=== PATIENT | male | born 1935 | race Caucasian/White ===

== ENCOUNTER 2016-04-15 11:56 | Inpatient (IN) | payer MEDICARE, OTHER ==
[2016-04-15] VITALS (8 sets, daily range): BP systolic 104–194; BP diastolic 54–106; PULSE 86–99; RESP 16–18; TEMP 95.7; O2SAT 94–98
[~2016-04-15] VITALS: Ht 175.3 cm; Wt 64.0 kg
[~2016-04-15 11:56] MED LIST: HYDR-3533 PO
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
[2016-04-15] MEDS ORDERED: SODIUM CHLORIDE 0.9% FLUSH 5 ML FLUSH IVF PRN ×2 (12:30→16:00)
[2016-04-15] MEDS ORDERED: ceFAZolin INJ 1,000 MG in ceFAZolin 2 GM PREMIX 50 ML IV ONE (12:30)
[2016-04-15] MEDS ORDERED: ONDANSETRON HCL 4 MG/2 ML VIAL IVP ONE (12:30)
[2016-04-15] MEDS ORDERED: DIPHTH/TETANUS/ACEL PERTUSSIS (BOOSTER) 0.5 ML VIAL/PFS IM ONE (12:30)
[2016-04-15 13:19] LABS: AUTOMATED NEUTROPHIL # 13.1 TH/MM3 (1.8-7.7); BASOPHIL # 0.1 TH/MM3 (0-0.2); BASOPHIL % 0.1 % (0.0-2.0); HEMATOCRIT 40.6 % (39.0-51.0); LYMPH % 70.8 % (9.0-44.0); MEAN CELL VOLUME 95.5 FL (80.0-100.0); MEAN CORPUSCULAR HEMOGLOBIN 31.5 PG (27.0-34.0); MONO % 2.7 % (0.0-8.0); NEUT % 26.4 % (16.0-70.0); PLATELET COUNT 180 TH/MM3 (150-450); RED BLOOD COUNT 4.25 MIL/MM3 (4.50-5.90); RED CELL DISTRIBUTION WIDTH 14.3 % (11.6-17.2); WHITE BLOOD COUNT 49.5 TH/MM3 (4.0-11.0)
[2016-04-15 13:22] LABS: HEMO FLAGS AUTO DIFF
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
[2016-04-15 13:30] LABS: APTT (PATIENT) 24.9 SEC (24.3-30.1); INTERNATIONAL NORMALIZED RATIO 1.1 RATIO; PROTHROMBIN TIME - PATIENT 11.9 SEC (9.8-11.6)
[2016-04-15] MEDS ORDERED: MORPHINE SULFATE 4 MG/ML INJ IV PUSH ONE (13:30)
[2016-04-15 13:39] LABS: ANION GAP 7 MEQ/L (5-15); BICARBONATE 29.3 MEQ/L (21.0-32.0); BLOOD UREA NITROGEN 11 MG/DL (7-18); CHLORIDE 96 MEQ/L (98-107); GLOMERULAR FILTRATION RATE 123 ML/MIN (>89); POTASSIUM 4.7 MEQ/L (3.5-5.1); SODIUM (NA) 132 MEQ/L (136-145)
[2016-04-15] MEDS ORDERED: hydrALAZINE HCL 20 MG/ML VIAL IV PUSH ONE (13:45)
[2016-04-15 14:02] LABS: BANDS 4 % (0-6); NEUTROPHIL # MANUAL DIFF 12.4 TH/MM3 (1.8-7.7); POLYS (SEG NEUTROPHILS) 21 % (16-70); WBC DIFF SAMPLE 100
[2016-04-15 14:03] LABS: PLATELET ESTIMATE SMEAR NORMAL (NORMAL); PLATELET MORPHOLOGY NORMAL (NORMAL); SCAN/DIFF FINAL DIFF MANUAL; SMUDGE CELLS PRESENT PRESENT
[2016-04-15] MEDS ORDERED: IOHEXOL 350 MG/ML 10 ML VIAL (for RAD DIAG) IV ONE (14:23)
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
[2016-04-15] MEDS ORDERED: SODIUM CHLOR 0.9% 1000 ML INJ 1,000 ML IV ONE (15:15)
[2016-04-15] MEDS ORDERED: THIAMINE INJ 100 MG in SODIUM CHLORIDE 0.9% INJ 100 ML IV ONE (15:15)
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
[2016-04-15] MEDS ORDERED: NALOXONE HCL 0.4 MG/ML AMP IV PRN (16:00)
[2016-04-15] MEDS ORDERED: ONDANSETRON HCL 4 MG/2 ML VIAL IV PRN (16:00)
[2016-04-15] MEDS ORDERED: Post-op Orders (for Pharmacy) MISC XX ONE (16:00)
[2016-04-15] MEDS ORDERED: PERMETHRIN 1% LOTION 60 ML BTL TOPICAL ONE (16:00)
[2016-04-15] MEDS: PANTOPRAZOLE SOD 40 MG DELAYED RELEASE TAB PO SCH (16:35)
[2016-04-15] MEDS: SODIUM CHLOR 0.9% 1000 ML INJ 1,000 ML IV SCH (16:36)
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
--- NOTE | 2016-04-15 19:46 | EKG ---
Date Performed: 04/15/2016 Time Performed: 12:56:26 PTAGE: 81 years EKG: Sinus rhythm UNDULATING BASELINE MAY AFFECT RESULTS LEFT ANTERIOR FASCICULAR BLOCK ABNORMAL ECG PREVIOUS TRACING : 12/23/2011 12.35 Since previous tracing, no significant change noted DOCTOR: Nimesh Perry Interpretating Date/Time 04/15/2016 19:44:48
[2016-04-15 20:41] LABS: BLOOD, URINE NEG (NEG); GLUCOSE,URINE 70 mg/dL (NEG); KETONE, URINE 10 mg/dL (NEG); MUCUS URINE FEW /lpf (OCC); NITRITE,URINE NEG (NEG); PH, URINE 7.5 (5.0-8.5); URINE COLOR YELLOW (YELLW/STRAW)
[2016-04-15 20:43] LABS: COMMENT (UR) CATH-CULT NOT IND; CULTURE IF INDICATED CATH CULTURE NOT IND
[2016-04-15] MEDS: DOCUSATE SODIUM 100 MG CAP PO SCH (23:00)
[2016-04-15] MEDS: oxyCODONE/ACETAMINOPHEN 5 MG/325 MG TAB PO PRN (23:00)
[2016-04-16] VITALS (13 sets, daily range): BP systolic 107–162; BP diastolic 55–78; PULSE 59–86; RESP 16–21; TEMP 98–98.6; O2SAT 94–97
[2016-04-16] MEDS: SODIUM CHLOR 0.9% 1000 ML INJ 1,000 ML IV SCH (04:30)
--- NOTE | 2016-04-16 06:52 | RADRPT ---
EXAM DATE/TIME: 04/16/2016 05:59 [place] COMPARISON: CT BRAIN W/O CONTRAST, April 15, 2016, 14:10. INDICATIONS : Follow up temporal bone fracture. RADIATION DOSE: 56.35 CTDIvol (mGy) MEDICAL HISTORY : None SURGICAL HISTORY : None. ENCOUNTER: Subsequent ACUITY: 1 day PAIN SCALE: 0/10 LOCATION: Left temporal TECHNIQUE: Multiple contiguous axial images were obtained of the head. Using automated exposure control and adj ustment of the mA and/or kV according to patient size, radiation dose was kept as low as reasonably a chievable to obtain optimal diagnostic quality images. FINDINGS: Stable size of the left temporal scalp hematoma and to the fractures of the side traumatic arch, late ral orbit, anterior maxilla, left nasal bone and comminuted fractures of the mid convexity left tempo ral region. No evidence of epidural hematoma. No evidence of blood products in the left hemisphere. There is focal hyperdensity in the inferior lateral aspect of the right temporal lobe and floor of the middle cranial fossa measuring 1.3 cm.. There is good lockwood-white matter differentiation. The ve ntricles are symmetric in size. CONCLUSION: 1. Contusion inferior right temporal lobe in the middle cranial fossa. 2. No extra-axial or intra-axial hemorrhages and left on the left side. 3. Stable left-sided facial and parietal bone fractures. Rd Hall MD on April 16, 2016 at 6:47 Board Certified Radiologist. This report was verified electronically.
[2016-04-16] MEDS: BACITRACIN TOP OINT 15 GM TUBE TOP SCH ×3 (09:00→22:11)
[2016-04-16] MEDS: oxyCODONE/ACETAMINOPHEN 5 MG/325 MG TAB PO PRN ×3 (09:26→22:12)
[2016-04-16] MEDS: SODIUM CHLORIDE 0.9% FLUSH 5 ML FLUSH IVF SCH ×2 (09:26→22:11)
[2016-04-16] MEDS: MAGNESIUM HYDROXIDE SUSP 30 ML CUP PO SCH (09:27)
[2016-04-16] MEDS: DOCUSATE SODIUM 100 MG CAP PO SCH ×2 (09:27→22:11)
[2016-04-16] MEDS: MULTIVITAMIN INJ 10 ML, THIAMINE INJ 100 MG, FOLIC ACID INJ 1 MG in SODIUM CHLORID 0.9%... IV SCH (10:37)
[2016-04-16] MEDS: PANTOPRAZOLE SOD 40 MG DELAYED RELEASE TAB PO SCH (15:53)
[2016-04-17] VITALS (7 sets, daily range): BP systolic 122–191; BP diastolic 60–86; PULSE 67–83; RESP 16–20; TEMP 98–98.4; O2SAT 95–99
[2016-04-17] MEDS: oxyCODONE/ACETAMINOPHEN 5 MG/325 MG TAB PO PRN ×3 (07:51→22:25)
[2016-04-17] MEDS: SODIUM CHLORIDE 0.9% FLUSH 5 ML FLUSH IVF SCH ×2 (09:00→22:21)
[2016-04-17] MEDS: MULTIVITAMIN INJ 10 ML, THIAMINE INJ 100 MG, FOLIC ACID INJ 1 MG in SODIUM CHLORID 0.9%... IV SCH (10:24)
[2016-04-17] MEDS: MAGNESIUM HYDROXIDE SUSP 30 ML CUP PO SCH (10:26)
[2016-04-17] MEDS: DOCUSATE SODIUM 100 MG CAP PO SCH ×2 (10:26→22:21)
[2016-04-17] MEDS: BACITRACIN TOP OINT 15 GM TUBE TOP SCH ×2 (10:26→22:22)
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
[2016-04-17] MEDS: PANTOPRAZOLE SOD 40 MG DELAYED RELEASE TAB PO SCH (18:47)
[2016-04-18] VITALS (7 sets, daily range): BP systolic 134–186; BP diastolic 73–88; PULSE 59–75; RESP 16–20; TEMP 97.9–98.5; O2SAT 93–96
[2016-04-18] MEDS: oxyCODONE/ACETAMINOPHEN 5 MG/325 MG TAB PO PRN ×3 (04:22→15:59)
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
[2016-04-18] MEDS ORDERED: LACTULOSE SYRUP 20 GM/30 ML CUP PO ONE (07:30)
[2016-04-18] MEDS: MAGNESIUM HYDROXIDE SUSP 30 ML CUP PO SCH (08:34)
[2016-04-18] MEDS: SODIUM CHLORIDE 0.9% FLUSH 5 ML FLUSH IVF SCH ×2 (08:34→23:04)
[2016-04-18] MEDS: BACITRACIN TOP OINT 15 GM TUBE TOP SCH ×2 (08:34→23:04)
[2016-04-18] MEDS: DOCUSATE SODIUM 100 MG CAP PO SCH ×2 (08:34→23:02)
[2016-04-18] MEDS: MULTIVITAMIN INJ 10 ML, THIAMINE INJ 100 MG, FOLIC ACID INJ 1 MG in SODIUM CHLORID 0.9%... IV SCH (09:07)
[2016-04-18] MEDS: PANTOPRAZOLE SOD 40 MG DELAYED RELEASE TAB PO SCH (16:39)
[2016-04-18] MEDS: REMOVE OLD PATCH T-DERMAL SCH (18:15)
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
[2016-04-18] MEDS: NITROGLYCERIN 0.4 MG/HR PATCH TD SCH (19:33)
[2016-04-18] MEDS: LISINOPRIL 10 MG TAB PO SCH (23:02)
[2016-04-19] VITALS (7 sets, daily range): BP systolic 90–155; BP diastolic 50–74; PULSE 64–86; RESP 16–20; TEMP 97.9–98.6; O2SAT 93–96
[2016-04-19] MEDS ORDERED: MAGNESIUM CITRATE SOLN 300 ML BTL PO ONE (08:30)
[2016-04-19] MEDS: REMOVE OLD PATCH T-DERMAL SCH (09:00)
[2016-04-19] MEDS: SODIUM CHLORIDE 0.9% FLUSH 5 ML FLUSH IVF SCH ×2 (09:56→22:50)
[2016-04-19] MEDS: LISINOPRIL 10 MG TAB PO SCH ×2 (09:57→21:00)
[2016-04-19] MEDS: MAGNESIUM HYDROXIDE SUSP 30 ML CUP PO SCH (09:57)
[2016-04-19] MEDS: DOCUSATE SODIUM 100 MG CAP PO SCH ×2 (09:57→22:50)
[2016-04-19] MEDS: BACITRACIN TOP OINT 15 GM TUBE TOP SCH ×2 (09:57→22:51)
[2016-04-19] MEDS: MULTIVITAMIN INJ 10 ML, THIAMINE INJ 100 MG, FOLIC ACID INJ 1 MG in SODIUM CHLORID 0.9%... IV SCH (09:57)
[2016-04-19] MEDS: oxyCODONE/ACETAMINOPHEN 5 MG/325 MG TAB PO PRN ×3 (09:59→22:52)
[2016-04-19] MEDS: NITROGLYCERIN 0.4 MG/HR PATCH TD SCH (14:34)
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
[2016-04-19] MEDS: PANTOPRAZOLE SOD 40 MG DELAYED RELEASE TAB PO SCH (17:42)
[2016-04-20] VITALS (8 sets, daily range): BP systolic 132–198; BP diastolic 64–88; PULSE 56–77; RESP 16–20; TEMP 97.7–98.1; O2SAT 95–98
[2016-04-20] MEDS: SODIUM CHLORIDE 0.9% FLUSH 5 ML FLUSH IVF SCH ×2 (08:04→19:37)
[2016-04-20] MEDS: MULTIVITAMIN INJ 10 ML, THIAMINE INJ 100 MG, FOLIC ACID INJ 1 MG in SODIUM CHLORID 0.9%... IV SCH (08:04)
[2016-04-20] MEDS: oxyCODONE/ACETAMINOPHEN 5 MG/325 MG TAB PO PRN ×2 (08:05→19:36)
[2016-04-20] MEDS: NITROGLYCERIN 0.4 MG/HR PATCH TD SCH (08:05)
[2016-04-20] MEDS: LISINOPRIL 10 MG TAB PO SCH ×2 (08:06→19:36)
[2016-04-20] MEDS: BACITRACIN TOP OINT 15 GM TUBE TOP SCH ×2 (08:06→19:37)
[2016-04-20] MEDS: MAGNESIUM HYDROXIDE SUSP 30 ML CUP PO SCH (08:06)
[2016-04-20] MEDS: DOCUSATE SODIUM 100 MG CAP PO SCH ×2 (08:06→19:36)
[2016-04-20] MEDS: REMOVE OLD PATCH T-DERMAL SCH (08:06)
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
[2016-04-20 09:53] LABS: AUTOMATED NEUTROPHIL # 2.6 TH/MM3 (1.8-7.7); BASOPHIL # 0.1 TH/MM3 (0-0.2); BASOPHIL % 0.3 % (0.0-2.0); EOSINOPHIL # 0.4 TH/MM3 (0-0.4); EOSINOPHIL % 1.1 % (0.0-4.0); HEMATOCRIT 34.5 % (39.0-51.0); LYMPH % 88.5 % (9.0-44.0); LYMPHOCYTE # 34.2 TH/MM3 (1.0-4.8); MEAN CELL VOLUME 97.1 FL (80.0-100.0); MEAN CORPUSCULAR HEMOGLOBIN 31.7 PG (27.0-34.0); MEAN CORPUSCULAR HGB CONC 32.6 % (32.0-36.0); MONO % 3.5 % (0.0-8.0); NEUT % 6.6 % (16.0-70.0); PLATELET COUNT 136 TH/MM3 (150-450); RED BLOOD COUNT 3.56 MIL/MM3 (4.50-5.90); WHITE BLOOD COUNT 38.7 TH/MM3 (4.0-11.0)
[2016-04-20 09:56] LABS: HEMO FLAGS AUTO DIFF
[2016-04-20 10:19] LABS: ANION GAP 6 MEQ/L (5-15); BICARBONATE 30.1 MEQ/L (21.0-32.0); BLOOD UREA NITROGEN 9 MG/DL (7-18); CHLORIDE 104 MEQ/L (98-107); GLOMERULAR FILTRATION RATE 164 ML/MIN (>89); POTASSIUM 4.4 MEQ/L (3.5-5.1); SODIUM (NA) 140 MEQ/L (136-145)
--- NOTE | 2016-04-20 11:00 | RADRPT ---
EXAM DATE/TIME: 04/20/2016 10:19 [place] COMPARISON: CT BRAIN W/O CONTRAST, April 16, 2016, 5:59. INDICATIONS : Dysphagia. FLUORO TIME: 0.5 minutes IMAGE COUNT: 5 CONTRAST: 1. Liquid E-Z Paque Barium Sulfate (60% w/v, 41% w.w) MEDICAL HISTORY : None. SURGICAL HISTORY : Splenectomy. lumbar spine surgery ENCOUNTER: Initial ACUITY: 4 - 6 days PAIN SCORE: 0/10 LOCATION: Bilateral neck FINDINGS: Limited barium swallow is performed for evaluation of swallowing mechanism after trauma. Ingestion of thin barium demonstrated a normal swallowing mechanism without evidence of aspiration. Imaging of th e esophagus is unremarkable. CONCLUSION: Normal swallowing mechanism without evidence of aspiration. Susy Albarran MD on April 20, 2016 at 10:55 Board Certified Radiologist. This report was verified electronically.
[2016-04-20 11:16] LABS: NEUTROPHIL # MANUAL DIFF 1.9 TH/MM3 (1.8-7.7); POLYS (SEG NEUTROPHILS) 5 % (16-70); WBC DIFF SAMPLE 100
[2016-04-20 11:18] LABS: ACANTHOCYTES OCC (NORMAL); PLATELET ESTIMATE SMEAR NORMAL (NORMAL); PLATELET MORPHOLOGY ENLARGED (NORMAL)
[2016-04-20 11:20] LABS: SMUDGE CELLS PRESENT PRESENT
[2016-04-20 11:21] LABS: SCAN/DIFF FINAL DIFF MANUAL
[2016-04-20 11:24] LABS: ALKALINE PHOSPHATASE 38 U/L (45-117); ALT (GPT) 32 U/L (12-78); AST (GOT) 33 U/L (15-37); TOTAL BILIRUBIN ADULT 0.4 MG/DL (0.2-1.0)
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
[2016-04-20] MEDS: PANTOPRAZOLE SOD 40 MG DELAYED RELEASE TAB PO SCH (17:03)
[2016-04-20 22:59] LABS: MRSA PCR POSITIVE (NEGATIVE); STAPH AUREUS PCR POSITIVE (NEGATIVE)
[2016-04-21 00:10] VITALS: BP 164/84; PULSE 68; RESP 18; TEMP 98; O2SAT 97
[2016-04-21] MEDS: oxyCODONE/ACETAMINOPHEN 5 MG/325 MG TAB PO PRN ×3 (00:15→10:30)
[2016-04-21 04:19] VITALS: BP 160/79; PULSE 73; RESP 18; TEMP 98.2; O2SAT 94
[2016-04-21] MEDS: MULTIVITAMIN INJ 10 ML, THIAMINE INJ 100 MG, FOLIC ACID INJ 1 MG in SODIUM CHLORID 0.9%... IV SCH (07:22)
[2016-04-21 08:00] VITALS: BP 108/61; PULSE 63; RESP 18; TEMP 98.3; O2SAT 97
[2016-04-21] MEDS: MAGNESIUM HYDROXIDE SUSP 30 ML CUP PO SCH (09:00)
[2016-04-21] MEDS: SODIUM CHLORIDE 0.9% FLUSH 5 ML FLUSH IVF SCH (09:00)
[2016-04-21] MEDS: REMOVE OLD PATCH T-DERMAL SCH (09:00)
[2016-04-21] MEDS: BACITRACIN TOP OINT 15 GM TUBE TOP SCH (09:00)
[2016-04-21] MEDS: NITROGLYCERIN 0.4 MG/HR PATCH TD SCH (09:00)
[2016-04-21] MEDS: DOCUSATE SODIUM 100 MG CAP PO SCH (09:00)
[2016-04-21] MEDS: LISINOPRIL 10 MG TAB PO SCH (09:00)
[2016-04-21] MEDS ORDERED: PNEUMOCOCCAL POLYVALENT INJ 25 MCG/0.5 ML SYR IM ONE (10:00)
[2016-04-21] MEDS ORDERED: INFLUENZA VIRUS VACCINE (QUADRIVALENT) 0.5 ML SYR IM ONE (10:00)
[2016-04-21 12:00] VITALS: BP 143/75; PULSE 62; RESP 18; TEMP 97.8; O2SAT 96
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
== END 2016-04-21 15:11 | disposition home or self-care (01) | DRG 86 ==
LOC: NEDAMB 11:56 → OBSVTOIN 15:03 → NEDA 15:03 → INTOOBSV 15:03 → N03B 20:13 → NEPHCDU 04-16 12:40 → N04A 04-20 17:57
PROVIDERS: ADMIT Surgery; ATTEND Surgery
DX: S02.19XA Other fracture of base of skull, initial encounter for closed fracture (principal); C91.10 Chronic lymphocytic leukemia of B-cell type not having achieved remission; E87.1 Hypo-osmolality and hyponatremia; S02.82XA Fracture of other specified skull and facial bones, left side, initial encounter for closed fracture; S02.40FA Zygomatic fracture, left side, initial encounter for closed fracture; Y08.89XA Assault by other specified means, initial encounter; Z59.0 Homelessness; I10 Essential (primary) hypertension; M54.5 Low back pain; M43.16 Spondylolisthesis, lumbar region; H26.9 Unspecified cataract; M19.90 Unspecified osteoarthritis, unspecified site; Z23 Encounter for immunization; Z96.1 Presence of intraocular lens; K08.109 Complete loss of teeth, unspecified cause, unspecified class; R12 Heartburn; R13.10 Dysphagia, unspecified; F10.10 Alcohol abuse, uncomplicated; K59.00 Constipation, unspecified
CPT/HCPCS: 70450; 70486; 71010; 72125; 74177; 74230; 80048; 80053; 80320; 81001; 85007; 85027; 85610; 85730; 86850; 86900; 86901; 87640; 87641; 90471; 90472; 90686; 90715; 90732; 93005; 94150; 96365; 96375; G0008; G0009; G8987-GP; G8988-GP; J0360; J0690; J2270; J2405; J3411; J7030; J7040; Q2038; Q9967

== ENCOUNTER 2016-11-02 11:36 | Emergency (ER) | payer MEDICARE, OTHER ==
[~2016-11-02] VITALS: Ht 177.8 cm; Wt 65.0 kg
[2016-11-02 11:37] VITALS: BP 139/79; PULSE 97; RESP 20; TEMP 99; O2SAT 93
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
== END 2016-11-02 15:00 | disposition left against medical advice (07) ==
LOC: NED 11:36
DX: Z02.89 Encounter for other administrative examinations (principal); Z53.21 Procedure and treatment not carried out due to patient leaving prior to being seen by health care provider
CPT/HCPCS: 99281

== ENCOUNTER 2016-11-04 09:44 | Emergency (ER) | payer MEDICARE ==
[~2016-11-04] VITALS: Ht 175.3 cm; Wt 61.0 kg
[2016-11-04 09:46] VITALS: BP 139/66; PULSE 91; RESP 18; TEMP 98.3; O2SAT 95
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
[2016-11-04 10:11] VITALS: BP 146/73; PULSE 98; RESP 20; O2SAT 96
[2016-11-04 10:19] VITALS: BP_SYST 141; BP_SYST 146; BP_DIAS 71; BP_DIAS 73; RESP 18; RESP 20
--- NOTE | 2016-11-04 11:03 | RADRPT ---
EXAM DATE/TIME: 11/04/2016 10:46 [place] COMPARISON: CT BRAIN W/O CONTRAST, April 16, 2016, 5:59. INDICATIONS : Dizziness today. RADIATION DOSE: 30.46 CTDIvol (mGy) MEDICAL HISTORY : Hypertension. head trauma SURGICAL HISTORY : Head trauma surgery ENCOUNTER: Initial ACUITY: 1 day PAIN SCALE: 0/10 LOCATION: Bilateral head TECHNIQUE: Multiple contiguous axial images were obtained of the head. Using automated exposure control and adj ustment of the mA and/or kV according to patient size, radiation dose was kept as low as reasonably a chievable to obtain optimal diagnostic quality images. DICOM format image data is available electro nically for review and comparison. FINDINGS: CEREBRUM: The ventricles are normal for age. No evidence of midline shift, mass lesion, hemorrhage or acute in farction. No extra-axial fluid collections are seen. POSTERIOR FOSSA: The cerebellum and brainstem are intact. The 4th ventricle is midline. The cerebellopontine angle i s unremarkable. EXTRACRANIAL: The visualized portion of the orbits is intact. SKULL: The calvaria is intact. No evidence of skull fracture. CONCLUSION: No acute disease. Judd Siegel MD FACR on November 04, 2016 at 11:01 Board Certified Radiologist. This report was verified electronically.
== END 2016-11-04 11:27 | disposition home or self-care (01) ==
LOC: NEPC 09:44
DX: R42 Dizziness and giddiness (principal); M19.90 Unspecified osteoarthritis, unspecified site; I10 Essential (primary) hypertension
CPT/HCPCS: 70450